=== PATIENT | male | born 1985 | race Caucasian/White ===

== ENCOUNTER 2018-04-19 07:30 | Emergency (ER) | payer SELFPAY ==
[~2018-04-19] VITALS: Ht 165.1 cm; Wt 88.6 kg
[2018-04-19 08:58] VITALS: BP 118/71
[2018-04-19] MEDS ORDERED: PERTUSS(ACELL),DIPH,TET VAC/PF 0.5 ML VIAL IM ONE (09:15)
[2018-04-19] MEDS ORDERED: HYDROGEN PEROXIDE 118 ML SOLUTION TP ONE (09:15)
== END 2018-04-19 09:37 | disposition home or self-care (01) ==
LOC: EMS 07:32
DX: S61.412A Laceration without foreign body of left hand, initial encounter (principal); W45.8XXA Other foreign body or object entering through skin, initial encounter; Y93.89 Activity, other specified; Y92.89 Other specified places as the place of occurrence of the external cause; Y99.8 Other external cause status
CPT/HCPCS: 90471; 90715; 99283